=== PATIENT | female | born 1995 | race Caucasian/White ===

== ENCOUNTER 2021-04-23 12:24 | Emergency (ER) | payer MEDICAID ==
[~2021-04-23] VITALS: Ht 154.9 cm; Wt 64.1 kg
[2021-04-23 12:29] VITALS: BP 111/67
[2021-04-23] MEDS ORDERED: TETanus/Pertussis (Acell)/Diphther VAC/PF (Tdap-Adult) 0.5ml syringe IMVAC ONE (12:55)
== END 2021-04-23 13:52 | disposition home or self-care (01) ==
LOC: ER 12:25
DX: S61.011A Laceration without foreign body of right thumb without damage to nail, initial encounter (principal); W01.0XXA Fall on same level from slipping, tripping and stumbling without subsequent striking against object, initial encounter; Y93.89 Activity, other specified; Y92.89 Other specified places as the place of occurrence of the external cause; Y99.8 Other external cause status
CPT/HCPCS: 12001; 90471; 90715; 99283

== ENCOUNTER 2022-09-06 12:46 | Emergency (ER) | payer MEDICAID ==
[~2022-09-06] VITALS: Ht 157.5 cm; Wt 60.9 kg
[2022-09-06 13:59] VITALS: BP 119/69
== END 2022-09-06 14:05 | disposition home or self-care (01) ==
LOC: ER 12:47
DX: R55 Syncope and collapse (principal); F31.9 Bipolar disorder, unspecified
CPT/HCPCS: 99283